=== PATIENT | male | born 1955 | race Caucasian/White ===

== ENCOUNTER 2021-08-19 18:27 | Observation (INO) ==
[2021-08-19] MEDS ORDERED: Aspirin 325 MG TABLET PO ONE (18:45)
[2021-08-19 19:47] LABS: Basophils % 0.3 %; Eosinophils # 0.1 K/mcL (0.0-0.6); Eosinophils % 0.8 %; Hematocrit 34.5 % (37.5-50.1); Hemoglobin 11.5 g/dL (12.9-16.9); Immature Granulocytes % 0.3 % (0-4); Lymphocytes # 0.5 K/mcL (0.6-4.6); Lymphocytes % 7.5 %; Mean Corpuscular HGB Conc 33.3 g/dL (31.6-35.5); Mean Corpuscular Hemoglobin 29.6 pg (28.0-33.3); Mean Corpuscular Volume 88.7 fL (83.0-100.0); Mean Platelet Volume 10.1 fL (9.4-12.4); Monocytes # 0.4 K/mcL (0.0-1.3); Monocytes % 5.7 %; Neutrophils # 6.1 K/mcL (1.6-8.9); Platelet Count 130 K/mcL (140-400); Red Blood Count 3.89 M/mcL (4.19-5.50); Red Cell Distribution Width 12.2 % (11.5-14.5); Segmented Neutrophils % 85.4 %; White Blood Count 7.2 K/mcL (4.3-11.1)
[2021-08-19 19:53] LABS: Influenza A PCR Negative (Negative); Influenza B PCR Negative (Negative); Resp. Syncytial Virus PCR Negative (Negative)
[2021-08-19 19:54] LABS: SARS-CoV-2 by PCR (In House) Negative (Negative)
[2021-08-19 20:04] LABS: BUN/Creatinine Ratio 25 (6-26); Blood Urea Nitrogen 22 mg/dL (8-23); Carbon Dioxide 24 mEq/L (23-29); Chloride 102 mEq/L (98-107); Glucose 117 mg/dL (70-105); Osmolality,Calculated 284 (280-300); Sodium 135 mEq/L (136-145); eGFR For African Americans > 60 (> 60); eGFR For Non-African Americans > 60 (> 60)
[2021-08-19 20:08] LABS: Troponin I 0.08 ng/mL (< 0.04)
[2021-08-19] MEDS ORDERED: *HR* Heparin 5,000 UNIT/ML VIAL IVP PRN ×2 (20:34)
[2021-08-19] MEDS ORDERED: *HR* Heparin 5,000 UNIT/ML VIAL IVP ONE (20:34)
[2021-08-19] MEDS: Heparin 25,000UNIT/250ML 1/2NS 25,000 UNIT/250 ML IV.SOLN IVC SCH (21:04)
[2021-08-19 22:37] LABS: Heparin anti-factor XA UFH 0.98 IU/mL (0.30-0.70); INR 1.1; Prothrombin Time 12.1 Seconds (9.4-12.1)
[2021-08-20] MEDS ORDERED: Perflutren Lipid Microsphere 1.3 ML in 0.9 % Sodium Chloride 8.7 ML IVP PRN ×2 (00:11→15:24)
[2021-08-20] MEDS ORDERED: Naloxone 0.4 MG/ML INJ IVP PRN (00:12)
[2021-08-20] MEDS ORDERED: Acetaminophen 325 MG TABLET PO PRN (00:12)
[2021-08-20] MEDS ORDERED: Ondansetron 4 MG/2 ML VIAL IVP PRN (00:12)
[2021-08-20] MEDS ORDERED: Nitroglycerin 0.4 MG TAB.SUBL SL PRN (00:15)
[2021-08-20] MEDS ORDERED: Morphine Sulfate 2 MG/ML SYRINGE IVP PRN (00:15)
[2021-08-20 04:55] LABS: Hematocrit 33.4 % (37.5-50.1); Hemoglobin 10.9 g/dL (12.9-16.9); Mean Corpuscular HGB Conc 32.6 g/dL (31.6-35.5); Mean Corpuscular Hemoglobin 28.6 pg (28.0-33.3); Mean Corpuscular Volume 87.7 fL (83.0-100.0); Mean Platelet Volume 10.5 fL (9.4-12.4); Platelet Count 154 K/mcL (140-400); Red Blood Count 3.81 M/mcL (4.19-5.50); Red Cell Distribution Width 12.4 % (11.5-14.5); White Blood Count 6.1 K/mcL (4.3-11.1)
[2021-08-20 05:01] LABS: BUN/Creatinine Ratio 24 (6-26); Blood Urea Nitrogen 20 mg/dL (8-23); Calcium 9.1 mg/dL (8.6-10.3); Carbon Dioxide 25 mEq/L (23-29); Chloride 103 mEq/L (98-107); Chol/HDL Ratio 3.8 (0-4.9); Cholesterol 245 mg/dL (< 200); Glucose 109 mg/dL (70-105); HDL Cholesterol 64 mg/dL (40-59); LDL Cholesterol,Calculated 112 mg/dL (< 100); Magnesium 1.8 mg/dL (1.6-2.6); Osmolality,Calculated 289 (280-300); Potassium 3.8 mEq/L (3.5-5.1); Sodium 138 mEq/L (136-145); Triglycerides 343 mg/dL (< 150); eGFR For African Americans > 60 (> 60); eGFR For Non-African Americans > 60 (> 60)
[2021-08-20 05:06] LABS: % Iron Saturation 21 % (20-55); Iron 82 mcg/dL (65-175); Transferrin 281 mg/dL (203-362)
[2021-08-20 05:20] LABS: Ferritin 154 ng/mL (20-250)
[2021-08-20] MEDS: Aspirin Enteric Coated 81 MG Tablet PO SCH (08:49)
[2021-08-20] MEDS: amLODIPine 5 MG TABLET PO SCH (08:49)
[2021-08-20 10:14] LABS: Estimated Average Glucose 120 mg/dl; Hemoglobin A1C 5.8 %
[2021-08-20] MEDS ORDERED: Heparin 1,000 UNITS/500 mL 500 ML ONE (13:38)
[2021-08-20] MEDS ORDERED: Nitroglycerin 1,000 MCG/5 ML VIAL IV ONE (13:38)
[2021-08-20] MEDS ORDERED: *HR* Heparin 10,000 UNIT/10 ML VIAL ONE (13:38)
[2021-08-20] MEDS ORDERED: ISOVUE-370 200 ML INFUS..BTL ONE ×2 (13:38→14:46)
[2021-08-20] MEDS ORDERED: 0.9 % Sodium Chloride 2,000 ML ONE (13:38)
[2021-08-20] MEDS ORDERED: *HR* Midazolam HCl 2 MG/2 ML VIAL ONE (13:44)
[2021-08-20] MEDS ORDERED: *HR* FentaNYL (PF) 100 MCG/2 ML VIAL ONE (13:44)
[2021-08-20] MEDS: *HR* OxyCODONE/APAP 10/325 TABLET PO PRN ×2 (13:47→20:33)
[2021-08-20] MEDS ORDERED: Tirofiban 12.5 MG/250ML 12.5 MG/250 ML BAG ONE (14:28)
[2021-08-20] MEDS ORDERED: Tirofiban 12.5 MG/250ML 12.5 MG/250 ML BAG IVC SCH (15:30)
[2021-08-20] MEDS: Heparin 25,000UNIT/250ML 1/2NS 25,000 UNIT/250 ML IV.SOLN IVC SCH (21:30)
[2021-08-21 02:13] LABS: Basophils % 0.6 %; Eosinophils # 0.1 K/mcL (0.0-0.6); Eosinophils % 1.8 %; Hematocrit 31.1 % (37.5-50.1); Hemoglobin 10.2 g/dL (12.9-16.9); Immature Granulocytes % 0.4 % (0-4); Lymphocytes # 0.7 K/mcL (0.6-4.6); Lymphocytes % 14.1 %; Mean Corpuscular HGB Conc 32.8 g/dL (31.6-35.5); Mean Corpuscular Hemoglobin 29.4 pg (28.0-33.3); Mean Corpuscular Volume 89.6 fL (83.0-100.0); Mean Platelet Volume 10.4 fL (9.4-12.4); Monocytes # 0.5 K/mcL (0.0-1.3); Monocytes % 10.1 %; Neutrophils # 3.6 K/mcL (1.6-8.9); Platelet Count 136 K/mcL (140-400); Red Blood Count 3.47 M/mcL (4.19-5.50); Red Cell Distribution Width 12.5 % (11.5-14.5)
[2021-08-21 02:35] LABS: BUN/Creatinine Ratio 22 (6-26); Blood Urea Nitrogen 22 mg/dL (8-23); Calcium 8.6 mg/dL (8.6-10.3); Carbon Dioxide 24 mEq/L (23-29); Chloride 103 mEq/L (98-107); Glucose 102 mg/dL (70-105); Osmolality,Calculated 286 (280-300); Potassium 3.7 mEq/L (3.5-5.1); Sodium 136 mEq/L (136-145); eGFR For African Americans > 60 (> 60); eGFR For Non-African Americans > 60 (> 60)
[2021-08-21 08:28] VITALS: O2SAT 95
[2021-08-21] MEDS: Aspirin Enteric Coated 81 MG Tablet PO SCH (08:28)
[2021-08-21] MEDS: amLODIPine 5 MG TABLET PO SCH (08:29)
[2021-08-21] MEDS: *HR* OxyCODONE/APAP 10/325 TABLET PO PRN (08:35)
[2021-08-21 11:58] VITALS: BP 148/73; PULSE 67; TEMP 98.1
== END 2021-08-21 13:42 | disposition home or self-care (01) ==
LOC: EMEROOARM 18:27 → 3BNU 18:27 → SUATTDRO 20:49 → 3BNU 21:55
PROVIDERS: ADMIT Internal Medicine; ATTEND Internal Medicine